=== PATIENT | female | born 1960 | race Caucasian/White ===

== ENCOUNTER 2017-01-22 07:36 | Emergency (ER) | payer MEDICARE, OTHER ==
[2017-01-22 08:31] LABS: BASO % 0.6 % (0.1-1.2); EOS # 0.1 10_X3_uL (0.0-0.4); EOS % 1.3 % (0.7-5.8); GRAN # 3.8 10_X3_uL (1.6-6.1); GRAN % 52.8 % (34.0-71.1); HEMATOCRIT 35.9 % (34-45); HEMOGLOBIN 12.2 g/dL (11.2-15.7); LYMPH # 2.7 10_X3_uL (1.2-3.7); LYMPH % 38.3 % (19.3-51.7); MEAN CORPUSCULAR HEMOGLOBIN 31.5 pg (27.0-33.0); MEAN CORPUSCULAR VOLUME 92.8 fL (79-95); MEAN PLATELET VOLUME 10.5 fl (7.5-11.5); MONO # 0.5 10_X3_uL (0.2-0.9); PLATELET COUNT 242 x10_3/uL (182-369); RED BLOOD COUNT 3.87 x10_6/uL (3.9-5.2); RED CELL DISTRIBUTION WIDTH 13.3 % (11.7-14.4); WHITE BLOOD COUNT 7.2 x10_3/uL (4.0-10.0)
[2017-01-22 08:31] LABS: PH,URINE 6.5 (5.0 - 9.0); URINE BILIRUBIN NEGATIVE (NEGATIVE); URINE BLOOD NEGATIVE (NEGATIVE); URINE GLUCOSE (UA) NORMAL (NORMAL); URINE KETONE NEGATIVE (NEGATIVE); URINE LEUKOCYTE ESTERASE NEGATIVE (NEGATIVE); URINE NITRATE NEGATIVE (NEGATIVE); URINE PROTEIN NEGATIVE (NEGATIVE); UROBILINOGEN NORMAL mg/dL (<1.0)
[2017-01-22 08:46] LABS: ALBUMIN 3.9 gm/dL (3.4-5.0); ALKALINE PHOSPHATASE 96 U/L (50-136); ALT/SGPT 10 U/L (3.5-33.9); AMYLASE 64 U/L (15.62-74.58); AST/SGOT 14 U/L (7.04-26.96); BLOOD UREA NITROGEN 7 mg/dL (7-18); CALCIUM 8.7 mg/dL (8.7-10.7); CARBON DIOXIDE 22 mmol/L (21-32); CREATININE 0.6 mg/dL (0.6-1.3); GLUCOSE,RANDOM 98 mg/dL (70-99); LIPASE 35 U/L (6.75-60.75); POTASSIUM 4.4 mmol/L (3.5-5.1); SODIUM 143 mmol/L (136-145); TOTAL PROTEIN 6.4 gm/dL (6.4-8.2)
[2017-01-22 09:06] LABS: BILIRUBIN,TOTAL < 0.15 mg/dL (0.0-1.0)
== END 2017-01-22 10:57 | disposition home or self-care (01) ==
LOC: ER 07:36
PROVIDERS: General Practice
DX: K59.00 Constipation, unspecified (principal); R10.12 Left upper quadrant pain; M54.9 Dorsalgia, unspecified; G89.29 Other chronic pain; G43.909 Migraine, unspecified, not intractable, without status migrainosus; K86.1 Other chronic pancreatitis; J44.9 Chronic obstructive pulmonary disease, unspecified; F41.9 Anxiety disorder, unspecified; I10 Essential (primary) hypertension; Z88.5 Allergy status to narcotic agent; Z88.8 Allergy status to other drugs, medicaments and biological substances; Z79.899 Other long term (current) drug therapy
CPT/HCPCS: 36415; 51701; 80053; 80307; 81003; 82150; 83690; 85025; 96374; 96375; 99070; 99284-25; J1170

== ENCOUNTER 2017-03-21 20:21 | Emergency (ER) | payer MEDICARE, OTHER ==
[2017-03-21 20:59] LABS: BASO # 0.1 10_X3_uL (0.0-0.1); BASO % 0.5 % (0.1-1.2); EOS # 0.2 10_X3_uL (0.0-0.4); EOS % 1.9 % (0.7-5.8); GRAN # 4.3 10_X3_uL (1.6-6.1); GRAN % 43.7 % (34.0-71.1); HEMATOCRIT 33.8 % (34-45); HEMOGLOBIN 12.1 g/dL (11.2-15.7); LYMPH # 4.5 10_X3_uL (1.2-3.7); LYMPH % 45.9 % (19.3-51.7); MEAN CORPUSCULAR HEMOGLOBIN 31.5 pg (27.0-33.0); MEAN CORPUSCULAR HGB CONC 35.8 g/dL (32.0-36.0); MEAN PLATELET VOLUME 9.6 fl (7.5-11.5); MONO # 0.8 10_X3_uL (0.2-0.9); PLATELET COUNT 314 x10_3/uL (182-369); RED BLOOD COUNT 3.84 x10_6/uL (3.9-5.2); RED CELL DISTRIBUTION WIDTH 12.8 % (11.7-14.4); WHITE BLOOD COUNT 9.7 x10_3/uL (4.0-10.0)
[2017-03-21 21:15] LABS: ALBUMIN 3.6 gm/dL (3.4-5.0); ALKALINE PHOSPHATASE 83 U/L (50-136); ALT/SGPT 18 U/L (3.5-33.9); AST/SGOT 20 U/L (7.04-26.96); BILIRUBIN,TOTAL < 0.15 mg/dL (0.0-1.0); BLOOD UREA NITROGEN 7 mg/dL (7-18); CALCIUM 8.5 mg/dL (8.7-10.7); CARBON DIOXIDE 26 mmol/L (21-32); CREATININE 0.5 mg/dL (0.6-1.3); GLUCOSE,RANDOM 105 mg/dL (70-99); LIPASE 28 U/L (6.75-60.75); POTASSIUM 3.1 mmol/L (3.5-5.1); SODIUM 126 mmol/L (136-145)
[2017-03-21 21:35] LABS: URINE BACTERIA 2+ (NONE SEEN); URINE BILIRUBIN NEGATIVE (NEGATIVE); URINE BLOOD NEGATIVE (NEGATIVE); URINE GLUCOSE (UA) NORMAL (NORMAL); URINE KETONE NEGATIVE (NEGATIVE); URINE LEUKOCYTE ESTERASE TRACE (NEGATIVE); URINE NITRATE POSITIVE (NEGATIVE); URINE PROTEIN NEGATIVE (NEGATIVE); URINE RBC 0-5 /[HPF] (0-2)
== END 2017-03-22 07:18 | disposition home or self-care (01) ==
LOC: ER 20:21
PROVIDERS: Emergency Medicine
DX: N39.0 Urinary tract infection, site not specified (principal); R10.11 Right upper quadrant pain; R10.13 Epigastric pain; I25.2 Old myocardial infarction; R11.0 Nausea; Z85.41 Personal history of malignant neoplasm of cervix uteri; Z87.19 Personal history of other diseases of the digestive system; F17.210 Nicotine dependence, cigarettes, uncomplicated; Z88.5 Allergy status to narcotic agent; Z88.6 Allergy status to analgesic agent; Z79.899 Other long term (current) drug therapy; Z79.1 Long term (current) use of non-steroidal anti-inflammatories (NSAID)
CPT/HCPCS: 36415; 71010; 80053; 81001; 83690; 85025; 87086; 87186; 93005; 96374; 96375; 99070; 99285; 99285-25; J1170; J7040; Q9967